=== PATIENT | male | born 1930 | race Caucasian/White ===

== ENCOUNTER 2018-04-29 16:03 | Inpatient (IN) | payer OTHER, MEDICAID ==
[~2018-04-29] VITALS: Ht 175.3 cm; Wt 80.7 kg
[~2018-04-29 16:03] MED LIST: ACET325T53 PO; ARTT OP; ASPI-859 PO; BENA20TA2 PO; DOCU-144 PO; FINA5TAB3 PO; GLU500 PO; HYDR25TA4 PO; MOM PO; OLAN10TA3 PO; REM15 PO; SIMV20TA2 PO; TAMS-11 PO
[2018-04-29 17:06] VITALS: BP_SYST 100
[2018-04-29] MEDS ORDERED: SPIR25TA PO (17:20)
[2018-04-29] MEDS ORDERED: FURO-150 PO (17:20)
[2018-04-29 19:06] LABS: BASOPHILS % (AUTO) 0.6 % (0.0-2.0); EOSINOPHILS # (AUTO) 0.4 K/uL (0.0-0.4); EOSINOPHILS % (AUTO) 6.5 % (0.0-4.0); HEMATOCRIT 32.3 % (36-54); HEMOGLOBIN 10.7 g/dL (14.0-18.0); LYMPHOCYTES # (AUTO) 1.2 K/uL (1.0-5.5); LYMPHOCYTES % (AUTO) 18.3 % (20.5-51.5); MEAN CORPUSCULAR HEMOGLOBIN 32 pg (27-31); MEAN CORPUSCULAR HGB CONC 33 % (32-36); MEAN CORPUSCULAR VOLUME 96 fL (79.0-98.0); MONOCYTES # (AUTO) 0.6 K/uL (0.0-1.0); MONOCYTES % (AUTO) 9.3 % (1.7-9.3); NEUTROPHILS # (AUTO) 4.2 K/uL (1.8-7.7); NEUTROPHILS % (AUTO) 65.3 % (40.0-70.0); PLATELET COUNT (AUTO) 336 K/uL (130-430); RED BLOOD CELL COUNT(AUTO) 3.37 MIL/uL (4.2-6.2); RED CELL DISTRIBUTION WIDTH 12.1 % (9.0-15.0); WHITE BLOOD COUNT (AUTO) 6.4 K/uL (4.8-10.8)
[2018-04-29 19:13] LABS: ANION GAP 6 (5-15); CALCIUM 8.8 mg/dL (8.4-11.0); CHLORIDE 107 mmol/L (98-107); CREATININE 0.85 mg/dL (0.55-1.30); GLUCOSE 127 mg/dL (70-99); SODIUM SERUM 141 mmol/L (136-145); UREA NITROGEN, BLOOD 28 mg/dL (8-21)
[2018-04-29] MEDS ORDERED: MILK OF MAGNESIA 30 ML UDC PO PRN (19:15)
[2018-04-29] MEDS ORDERED: ACETAMINOPHEN 325 MG TABLET PO PRN (19:15)
[2018-04-29 19:18] LABS: ALANINE AMINOTRANSFERASE 59 U/L (12-78); ALBUMIN 2.9 g/dL (3.4-4.8); ASPARTATE AMINOTRANSFERASE 45 U/L (10-37); TOTAL BILIRUBIN 0.3 mg/dL (0.0-1.0)
[2018-04-29 19:30] VITALS: BP_SYST 95
[2018-04-29] MEDS ORDERED: cefTRIAXone 1 GM IVPB PREMIX 50 ML IV ONE (20:26)
[2018-04-29] MEDS: KCL 20 mEq in D5/0.45NS 1000mL 1,000 ML IV SCH (21:19)
[2018-04-29] MEDS: PEG 400/HYPROMELLOSE/GLYCERIN 15 ML DROPS OP SCH (21:20)
[2018-04-29] MEDS: cefTRIAXone 1 GM in D5W 50 ML IV SCH (21:20)
[2018-04-29] MEDS: SIMVASTATIN 20 MG TABLET PO SCH (21:21)
[2018-04-29] MEDS: MIRTAZAPINE 15 MG TABLET PO SCH (21:21)
[2018-04-29 23:38] VITALS: BP_SYST 80
[2018-04-30] MEDS: INSULIN REGULAR, HUMAN 100 UNITS/ML, 10 ML VIAL (novoLIN R) SUBCUT PRN ×2 (00:21→17:47)
[2018-04-30 08:05] VITALS: BP_SYST 114
[2018-04-30] MEDS: KCL 20 mEq in D5/0.45NS 1000mL 1,000 ML IV SCH (09:25)
[2018-04-30] MEDS: ENOXAPARIN SODIUM 40 MG/0.4 ML SYRINGE SUBCUT SCH (09:26)
[2018-04-30] MEDS: PEG 400/HYPROMELLOSE/GLYCERIN 15 ML DROPS OP SCH ×2 (09:27→21:00)
[2018-04-30] MEDS: SPIRONOLACTONE 25 MG TABLET (ALDACTONE) PO SCH (09:27)
[2018-04-30] MEDS: DOCUSATE SODIUM 100 MG CAPSULE PO SCH (09:28)
[2018-04-30] MEDS: OLANZapine 10 MG TABLET PO SCH (09:28)
[2018-04-30] MEDS: BENAZEPRIL HCL 20 MG TABLET (LOTENSIN) PO SCH (09:28)
[2018-04-30] MEDS: metFORMIN HCL 500 MG TABLET PO SCH (09:28)
[2018-04-30] MEDS: FINASTERIDE 5 MG TABLET (PROSCAR) PO SCH (09:28)
[2018-04-30 12:49] VITALS: BP_SYST 95
[2018-04-30 16:49] VITALS: BP_SYST 103
[2018-04-30] MEDS: cefTRIAXone 1 GM in D5W 50 ML IV SCH (18:31)
[2018-04-30] MEDS: MIRTAZAPINE 15 MG TABLET PO SCH (21:03)
[2018-04-30] MEDS: SIMVASTATIN 20 MG TABLET PO SCH (21:03)
[2018-04-30] MEDS ORDERED: TEMAZEPAM 15 MG CAPSULE PO STA (22:00)
[2018-04-30] MEDS ORDERED: TEMAZEPAM 15 MG CAPSULE ONE (22:31)
[2018-05-01 00:30] VITALS: BP_SYST 105
[2018-05-01] MEDS: KCL 20 mEq in D5/0.45NS 1000mL 1,000 ML IV SCH ×2 (00:34→11:30)
[2018-05-01 07:22] LABS: ANION GAP 6 (5-15); CALCIUM 8.7 mg/dL (8.4-11.0); CHLORIDE 108 mmol/L (98-107); CREATININE 0.79 mg/dL (0.55-1.30); GLUCOSE 189 mg/dL (70-99); POTASSIUM 3.9 mmol/L (3.5-5.1); SODIUM SERUM 139 mmol/L (136-145); UREA NITROGEN, BLOOD 16 mg/dL (8-21)
[2018-05-01 07:38] LABS: BASOPHILS % (AUTO) 0.8 % (0.0-2.0); EOSINOPHILS # (AUTO) 0.5 K/uL (0.0-0.4); EOSINOPHILS % (AUTO) 8.9 % (0.0-4.0); HEMATOCRIT 34.6 % (36-54); HEMOGLOBIN 11.6 g/dL (14.0-18.0); LYMPHOCYTES # (AUTO) 1.2 K/uL (1.0-5.5); LYMPHOCYTES % (AUTO) 22.3 % (20.5-51.5); MEAN CORPUSCULAR HEMOGLOBIN 32 pg (27-31); MEAN CORPUSCULAR HGB CONC 33 % (32-36); MEAN CORPUSCULAR VOLUME 95 fL (79.0-98.0); MONOCYTES # (AUTO) 0.4 K/uL (0.0-1.0); MONOCYTES % (AUTO) 6.7 % (1.7-9.3); NEUTROPHILS # (AUTO) 3.3 K/uL (1.8-7.7); NEUTROPHILS % (AUTO) 61.3 % (40.0-70.0); PLATELET COUNT (AUTO) 377 K/uL (130-430); RED BLOOD CELL COUNT(AUTO) 3.66 MIL/uL (4.2-6.2); RED CELL DISTRIBUTION WIDTH 11.9 % (9.0-15.0); WHITE BLOOD COUNT (AUTO) 5.4 K/uL (4.8-10.8)
[2018-05-01 08:32] VITALS: BP_SYST 107
[2018-05-01] MEDS: ENOXAPARIN SODIUM 40 MG/0.4 ML SYRINGE SUBCUT SCH (09:00)
[2018-05-01] MEDS: metFORMIN HCL 500 MG TABLET PO SCH (09:00)
[2018-05-01] MEDS: SPIRONOLACTONE 25 MG TABLET (ALDACTONE) PO SCH (09:00)
[2018-05-01] MEDS: BENAZEPRIL HCL 20 MG TABLET (LOTENSIN) PO SCH (09:00)
[2018-05-01] MEDS: OLANZapine 10 MG TABLET PO SCH (09:00)
[2018-05-01] MEDS: DOCUSATE SODIUM 100 MG CAPSULE PO SCH (09:00)
[2018-05-01] MEDS: FINASTERIDE 5 MG TABLET (PROSCAR) PO SCH (09:00)
[2018-05-01] MEDS: PEG 400/HYPROMELLOSE/GLYCERIN 15 ML DROPS OP SCH (09:00)
[2018-05-01 12:02] VITALS: BP_SYST 115
[2018-05-01 16:02] VITALS: BP_SYST 124
[2018-05-01 16:44] VITALS: BP_SYST 124
[2018-05-01] MEDS ORDERED: HALOPERIDOL LACTATE 5 MG/ML VIAL IM ONE ×2 (19:30)
[2018-05-01 20:00] VITALS: BP_SYST 112
[2018-05-01] MEDS ORDERED: TEMAZEPAM 15 MG CAPSULE PO SCH (21:00)
== END 2018-05-01 20:43 | DRG 640 ==
LOC: SED 16:03 → SMU 17:02
PROVIDERS: ADMIT Family Medicine; ATTEND Family Medicine
DX: E86.0 Dehydration (principal); G93.41 Metabolic encephalopathy; E11.9 Type 2 diabetes mellitus without complications; I10 Essential (primary) hypertension; N40.0 Benign prostatic hyperplasia without lower urinary tract symptoms; M19.90 Unspecified osteoarthritis, unspecified site
CPT/HCPCS: 36415; 80048; 80053; 82962; 85025; 87081; 87086; 99285; J0696; J1630; J1650; J1815; J7060

== ENCOUNTER 2019-04-05 14:20 | Inpatient (IN) | payer OTHER, MEDICAID ==
[~2019-04-05] VITALS: Ht 157.5 cm; Wt 70.8 kg
[~2019-04-05 14:20] MED LIST changes: -BENA20TA2 PO; +BENA20TA9 PO; +FURO-150 PO; +SPIR25TA PO
[2019-04-05 14:22] VITALS: BP_SYST 111
[2019-04-05] MEDS ORDERED: NACL 0.9% 1,000 ML IV ONE (14:31)
[2019-04-05] MEDS ORDERED: NACL 0.9% 2,000 ML IV ONE ×2 (14:45→16:45)
[2019-04-05] MEDS ORDERED: ALBUTEROL SULFATE 0.083% 2.5 MG/3 ML VIAL.NEB INH ONE (14:45)
[2019-04-05] MEDS ORDERED: IPRATROPIUM BROM 0.5 MG/2.5 ML VIAL.NEB (ATROVENT) INH ONE (14:45)
[2019-04-05] MEDS ORDERED: methylPREDNISolone SOD SUCC/PF 62.5 MG/ML VIAL IVP ONE (14:45)
[2019-04-05 14:55] LABS: BASOPHILS % (AUTO) 0.4 % (0.0-2.0); EOSINOPHILS # (AUTO) 0.1 K/uL (0.0-0.4); EOSINOPHILS % (AUTO) 0.9 % (0.0-4.0); HEMATOCRIT 41.7 % (36-54); HEMOGLOBIN 13.6 g/dL (14.0-18.0); LYMPHOCYTES # (AUTO) 0.8 K/uL (1.0-5.5); LYMPHOCYTES % (AUTO) 7.2 % (20.5-51.5); MEAN CORPUSCULAR HEMOGLOBIN 32 pg (27-31); MEAN CORPUSCULAR HGB CONC 33 % (32-36); MEAN CORPUSCULAR VOLUME 99 fL (79.0-98.0); MONOCYTES # (AUTO) 0.5 K/uL (0.0-1.0); MONOCYTES % (AUTO) 4.5 % (1.7-9.3); NEUTROPHILS # (AUTO) 9.3 K/uL (1.8-7.7); PLATELET COUNT (AUTO) 294 K/uL (130-430); RED BLOOD CELL COUNT(AUTO) 4.23 MIL/uL (4.2-6.2); RED CELL DISTRIBUTION WIDTH 14.2 % (9.0-15.0); WHITE BLOOD COUNT (AUTO) 10.7 K/uL (4.8-10.8)
[2019-04-05 15:15] LABS: ANION GAP 7 (5-15); CALCIUM 8.9 mg/dL (8.4-11.0); CHLORIDE 111 mmol/L (98-107); CREATININE 1.98 mg/dL (0.55-1.30); POTASSIUM 4.9 mmol/L (3.5-5.1); PROTHROMBIN TIME 10.1 SECS (9.5-12.5); SODIUM SERUM 146 mmol/L (136-145); UREA NITROGEN, BLOOD 65 mg/dL (8-21)
[2019-04-05 15:31] LABS: ALANINE AMINOTRANSFERASE 23 U/L (12-78); ALBUMIN 3.6 g/dL (3.4-4.8); AMYLASE 28 U/L (0-100); ASPARTATE AMINOTRANSFERASE 8 U/L (10-37); LIPASE 156 U/L (73-393); TOTAL BILIRUBIN 0.3 mg/dL (0.0-1.0)
[2019-04-05 15:33] LABS: ALCOHOL, BLOOD < 3 mg/dL (<10); GLUCOSE 536 mg/dL (70-99)
[2019-04-05] MEDS ORDERED: INSULIN REGULAR, HUMAN 10 UNITS/0.1 ML INJ IVP ONE (16:45)
[2019-04-05 17:17] LABS: BILIRUBIN,URINE NEGATIVE (NEGATIVE); BLOOD, URINE NEGATIVE (NEGATIVE); CLARITY/URINE CLEAR (CLEAR); COLOR,URINE YELLOW (YELLOW); GLUCOSE,URINE 3+ (NEGATIVE); KETONES,URINE NEGATIVE (NEGATIVE); LEUKOCYTE ESTERASE ,URINE NEGATIVE (NEGATIVE); NITRITE, URINE NEGATIVE (NEGATIVE); PH,URINE 5.5 (5.0-8.0); PROTEIN URINE NEGATIVE (NEGATIVE); UROBILINOGEN,URINE 0.2 (0.2-1.0)
[2019-04-05 17:51] LABS: BARBITURATE, URINE NEGATIVE (NEG <=200); BENZODIAZEPINE, URINE NEGATIVE (NEG <=150); CANNABINOID, URINE NEGATIVE (NEG <=50); COCAINE, URINE NEGATIVE (NEG <=150); METHAMPHETAMINES SCREEN,URINE NEGATIVE (NEG <=500); OPIATE, URINE NEGATIVE (NEG <=100); PHENCYCLIDINE SCREEN,URINE NEGATIVE (NEG <=25); UR TRICYCLIC ANTIDEPRESSANTS NEGATIVE (NEG <=300); URINE AMPHETAMINE NEGATIVE (NEG <=500); URINE METHADONE NEGATIVE (NEG <=200); URINE OXYCODONE SCREEN NEGATIVE (NEG <=100); URINE PROPOXYPHENE SCREEN NEGATIVE (NEG <=300)
[2019-04-05] MEDS ORDERED: NOREPINEPHRINE BITARTRATE 4 MG in NS 246 ML IV ONE (18:30)
[2019-04-05 18:39] LABS: BACTERIA,URINE FEW /HPF (None Seen); MUCUS,URINE 2+ /LPF (None Seen); RBC,URINE 0-3 /HPF (0-3)
[2019-04-05] MEDS ORDERED: NOREPINEPHRINE 4 MG/4 ML VIAL IV ONE (19:54)
[2019-04-05 21:19] VITALS: BP_SYST 107
[2019-04-05] MEDS: NACL 0.9% 1,000 ML IV SCH (22:54)
[2019-04-05] MEDS: IPRATROPIUM/ALBUTEROL SULFATE 3 ML AMPUL.NEB (DUONEB) INH SCH (23:16)
[2019-04-06] VITALS (21 sets, daily range): BP systolic 101–142
[2019-04-06] MEDS: IPRATROPIUM/ALBUTEROL SULFATE 3 ML AMPUL.NEB (DUONEB) INH SCH ×6 (02:56→23:08)
[2019-04-06] MEDS ORDERED: NOREPINEPHRINE 4 MG/4 ML VIAL IV ONE (04:24)
[2019-04-06] MEDS ORDERED: NOREPINEPHRINE BITARTRATE 4 MG in NS 246 ML IV PRN (05:00)
[2019-04-06 05:59] LABS: BASOPHILS % (AUTO) 0.4 % (0.0-2.0); EOSINOPHILS # (AUTO) 0.2 K/uL (0.0-0.4); EOSINOPHILS % (AUTO) 2.1 % (0.0-4.0); HEMATOCRIT 35.4 % (36-54); HEMOGLOBIN 11.7 g/dL (14.0-18.0); LYMPHOCYTES # (AUTO) 1.4 K/uL (1.0-5.5); LYMPHOCYTES % (AUTO) 13.6 % (20.5-51.5); MEAN CORPUSCULAR HEMOGLOBIN 32 pg (27-31); MEAN CORPUSCULAR HGB CONC 33 % (32-36); MEAN CORPUSCULAR VOLUME 98 fL (79.0-98.0); MONOCYTES # (AUTO) 0.6 K/uL (0.0-1.0); MONOCYTES % (AUTO) 5.8 % (1.7-9.3); NEUTROPHILS # (AUTO) 7.9 K/uL (1.8-7.7); NEUTROPHILS % (AUTO) 78.1 % (40.0-70.0); PLATELET COUNT (AUTO) 280 K/uL (130-430); RED CELL DISTRIBUTION WIDTH 14.1 % (9.0-15.0); WHITE BLOOD COUNT (AUTO) 10.1 K/uL (4.8-10.8)
[2019-04-06 06:11] LABS: ALANINE AMINOTRANSFERASE 20 U/L (12-78); ALBUMIN 2.7 g/dL (3.4-4.8); ANION GAP 10 (5-15); ASPARTATE AMINOTRANSFERASE 9 U/L (10-37); CALCIUM 8.2 mg/dL (8.4-11.0); CHLORIDE 119 mmol/L (98-107); CREATININE 1.18 mg/dL (0.55-1.30); GLUCOSE 276 mg/dL (70-99); POTASSIUM 3.9 mmol/L (3.5-5.1); SODIUM SERUM 152 mmol/L (136-145); TOTAL BILIRUBIN 0.5 mg/dL (0.0-1.0); UREA NITROGEN, BLOOD 47 mg/dL (8-21)
[2019-04-06] MEDS ORDERED: FLU VACC TS2019(65UP)/MF59C/PF 45 MCG/0.5 ML SYRINGE I.M. PRN (06:15)
[2019-04-06] MEDS ORDERED: INSULIN REGULAR, HUMAN 100 UNITS/ML, 10 ML VIAL SUBCUT SCH (07:00)
[2019-04-06] MEDS ORDERED: D5W 1,000 ML IV PRN (08:00)
[2019-04-06] MEDS ORDERED: GLUCOSE 15 GM GEL (in 37.5 GM TUBE) PO PRN (08:00)
[2019-04-06] MEDS ORDERED: DEXTROSE 50%-WATER 50 ML DISP.SYRIN IVP PRN (08:00)
[2019-04-06] MEDS: NACL 0.9% 1,000 ML IV SCH ×2 (08:58→16:12)
[2019-04-06] MEDS ORDERED: LEVOFLOXACIN 500 MG/D5W 100 ML IV SCH (09:00)
[2019-04-06] MEDS: OLANZapine 10 MG TABLET PO SCH (09:00)
[2019-04-06] MEDS: INSULIN REGULAR, HUMAN 100 UNITS/ML, 10 ML VIAL (humuLIN R) SUBCUT PRN ×3 (09:00→22:56)
[2019-04-06] MEDS ORDERED: metroNIDAZOLE 500 mg/NS 100 ML IV ONE (11:30)
[2019-04-06] MEDS: cefTRIAXone 1 GM in D5W 50 ML IV SCH (12:08)
[2019-04-06] MEDS ORDERED: ACETAMINOPHEN 325 MG TABLET PO PRN (15:15)
[2019-04-06] MEDS: metroNIDAZOLE 500 mg/NS 100 ML IV SCH (22:14)
[2019-04-07] VITALS (21 sets, daily range): BP systolic 96–135
[2019-04-07] MEDS: IPRATROPIUM/ALBUTEROL SULFATE 3 ML AMPUL.NEB (DUONEB) INH SCH ×6 (03:59→23:32)
[2019-04-07] MEDS: NACL 0.9% 1,000 ML IV SCH ×3 (04:30→20:44)
[2019-04-07 06:53] LABS: BASOPHILS # (AUTO) 0.1 K/uL (0.0-0.2); BASOPHILS % (AUTO) 0.6 % (0.0-2.0); EOSINOPHILS # (AUTO) 0.1 K/uL (0.0-0.4); EOSINOPHILS % (AUTO) 0.3 % (0.0-4.0); HEMATOCRIT 36.4 % (36-54); HEMOGLOBIN 11.7 g/dL (14.0-18.0); LYMPHOCYTES # (AUTO) 1.1 K/uL (1.0-5.5); LYMPHOCYTES % (AUTO) 7.7 % (20.5-51.5); MEAN CORPUSCULAR HEMOGLOBIN 32 pg (27-31); MEAN CORPUSCULAR HGB CONC 32 % (32-36); MEAN CORPUSCULAR VOLUME 99 fL (79.0-98.0); MONOCYTES # (AUTO) 0.5 K/uL (0.0-1.0); MONOCYTES % (AUTO) 3.3 % (1.7-9.3); NEUTROPHILS % (AUTO) 88.1 % (40.0-70.0); PLATELET COUNT (AUTO) 252 K/uL (130-430); RED BLOOD CELL COUNT(AUTO) 3.68 MIL/uL (4.2-6.2); RED CELL DISTRIBUTION WIDTH 14.5 % (9.0-15.0)
[2019-04-07 06:55] LABS: ANION GAP 6 (5-15); CALCIUM 8.4 mg/dL (8.4-11.0); CREATININE 1.03 mg/dL (0.55-1.30); GLUCOSE 205 mg/dL (70-99); POTASSIUM 3.6 mmol/L (3.5-5.1); SODIUM SERUM 150 mmol/L (136-145); UREA NITROGEN, BLOOD 25 mg/dL (8-21)
[2019-04-07 07:04] LABS: CHLORIDE 120 mmol/L (98-107)
[2019-04-07 07:39] LABS: WHITE BLOOD COUNT (AUTO) 14.8 K/uL (4.8-10.8)
[2019-04-07] MEDS: metroNIDAZOLE 500 mg/NS 100 ML IV SCH ×2 (07:50→22:29)
[2019-04-07] MEDS: OLANZapine 10 MG TABLET PO SCH (07:50)
[2019-04-07] MEDS ORDERED: POTASSIUM CHLORIDE 20 MEQ/PKT PACKET PO ONE (08:15)
[2019-04-07] MEDS ORDERED: FUROSEMIDE 20 MG/2 ML VIAL IVP ONE (08:15)
[2019-04-07] MEDS: INSULIN REGULAR, HUMAN 100 UNITS/ML, 10 ML VIAL (humuLIN R) SUBCUT PRN ×3 (12:01→22:39)
[2019-04-07] MEDS: cefTRIAXone 1 GM in D5W 50 ML IV SCH (14:20)
[2019-04-07] MEDS: KCL 20 mEq in 0.45% NS 1000 mL 1,000 ML IV SCH (22:30)
[2019-04-07] MEDS ORDERED: KCL 20 mEq in 0.45% NS 1000 mL 1,000 ML IV ONE (22:33)
[2019-04-08] VITALS (8 sets, daily range): BP systolic 103–126
[2019-04-08] MEDS: IPRATROPIUM/ALBUTEROL SULFATE 3 ML AMPUL.NEB (DUONEB) INH SCH ×6 (04:42→23:41)
[2019-04-08] MEDS: INSULIN REGULAR, HUMAN 100 UNITS/ML, 10 ML VIAL (humuLIN R) SUBCUT PRN (06:31)
[2019-04-08] MEDS: KCL 20 mEq in 0.45% NS 1000 mL 1,000 ML IV SCH ×2 (08:59→19:26)
[2019-04-08] MEDS: OLANZapine 10 MG TABLET PO SCH (09:00)
[2019-04-08] MEDS: metroNIDAZOLE 500 mg/NS 100 ML IV SCH ×2 (09:00→21:06)
[2019-04-08] MEDS: cefTRIAXone 1 GM in D5W 50 ML IV SCH (11:16)
[2019-04-09 01:45] VITALS: BP_SYST 115
[2019-04-09] MEDS: IPRATROPIUM/ALBUTEROL SULFATE 3 ML AMPUL.NEB (DUONEB) INH SCH ×5 (03:07→23:13)
[2019-04-09] MEDS: KCL 20 mEq in 0.45% NS 1000 mL 1,000 ML IV SCH ×2 (06:17→17:31)
[2019-04-09 07:45] LABS: BASOPHILS % (AUTO) 0.1 % (0.0-2.0); EOSINOPHILS # (AUTO) 0.4 K/uL (0.0-0.4); HEMATOCRIT 31.3 % (36-54); HEMOGLOBIN 10.5 g/dL (14.0-18.0); LYMPHOCYTES # (AUTO) 0.9 K/uL (1.0-5.5); LYMPHOCYTES % (AUTO) 9.8 % (20.5-51.5); MEAN CORPUSCULAR HEMOGLOBIN 33 pg (27-31); MEAN CORPUSCULAR HGB CONC 34 % (32-36); MEAN CORPUSCULAR VOLUME 98 fL (79.0-98.0); MONOCYTES # (AUTO) 0.3 K/uL (0.0-1.0); MONOCYTES % (AUTO) 2.9 % (1.7-9.3); NEUTROPHILS # (AUTO) 7.7 K/uL (1.8-7.7); NEUTROPHILS % (AUTO) 83.2 % (40.0-70.0); PLATELET COUNT (AUTO) 217 K/uL (130-430); RED CELL DISTRIBUTION WIDTH 14.1 % (9.0-15.0); WHITE BLOOD COUNT (AUTO) 9.3 K/uL (4.8-10.8)
[2019-04-09 08:12] VITALS: BP_SYST 122
[2019-04-09 08:15] LABS: ANION GAP 11 (5-15); CALCIUM 7.9 mg/dL (8.4-11.0); CHLORIDE 116 mmol/L (98-107); CREATININE 0.66 mg/dL (0.55-1.30); GLUCOSE 134 mg/dL (70-99); POTASSIUM 3.4 mmol/L (3.5-5.1); SODIUM SERUM 147 mmol/L (136-145); UREA NITROGEN, BLOOD 16 mg/dL (8-21)
[2019-04-09] MEDS: OLANZapine 10 MG TABLET PO SCH (09:00)
[2019-04-09] MEDS: metroNIDAZOLE 500 mg/NS 100 ML IV SCH ×2 (09:05→20:14)
[2019-04-09] MEDS: cefTRIAXone 1 GM in D5W 50 ML IV SCH (11:00)
[2019-04-09 12:15] VITALS: BP_SYST 117
[2019-04-09] MEDS ORDERED: BARIUM SULFATE 135 ML SUSP.RECON (E-Z-HD) PO ONE (13:19)
[2019-04-09] MEDS ORDERED: POTASSIUM CHLORIDE 20 MEQ/PKT PACKET PO ONE (15:00)
[2019-04-09 16:20] VITALS: BP_SYST 124
[2019-04-09] MEDS: INSULIN REGULAR, HUMAN 100 UNITS/ML, 10 ML VIAL (humuLIN R) SUBCUT PRN (17:37)
[2019-04-09 20:00] VITALS: BP_SYST 107
[2019-04-10 01:08] VITALS: BP_SYST 119
[2019-04-10] MEDS: KCL 20 mEq in 0.45% NS 1000 mL 1,000 ML IV SCH (01:54)
[2019-04-10] MEDS: IPRATROPIUM/ALBUTEROL SULFATE 3 ML AMPUL.NEB (DUONEB) INH SCH ×5 (02:44→20:08)
[2019-04-10 08:57] VITALS: BP_SYST 119
[2019-04-10] MEDS: OLANZapine 10 MG TABLET PO SCH (10:28)
[2019-04-10] MEDS ORDERED: cefTRIAXone 1 GM in D5W 50 ML IV SCH (10:45)
[2019-04-10 11:24] VITALS: BP_SYST 119
[2019-04-10] MEDS: INSULIN REGULAR, HUMAN 100 UNITS/ML, 10 ML VIAL (humuLIN R) SUBCUT PRN ×2 (12:19→17:57)
[2019-04-10] MEDS ORDERED: metroNIDAZOLE 500 mg/NS 100 ML IV SCH (14:00)
[2019-04-10 15:27] VITALS: BP_SYST 114
[2019-04-10 19:55] VITALS: BP_SYST 117
[2019-04-10 20:14] VITALS: BP_SYST 117
== END 2019-04-10 10:31 | DRG 871 ==
LOC: SED 14:20 → SIC 18:21 → STU 04-07 23:38
PROVIDERS: ADMIT Internal Medicine; ATTEND Internal Medicine
PROC: 02HV33Z Insertion of Infusion Device into Superior Vena Cava, Percutaneous Approach (ICD-10-PCS; principal; 2019-04-05)
PROC: B548ZZA Ultrasonography of Superior Vena Cava, Guidance (ICD-10-PCS; 2019-04-05)
DX: A41.9 Sepsis, unspecified organism (principal); R65.21 Severe sepsis with septic shock; J69.0 Pneumonitis due to inhalation of food and vomit; G93.41 Metabolic encephalopathy; N17.9 Acute kidney failure, unspecified; E87.0 Hyperosmolality and hypernatremia; J98.11 Atelectasis; D64.9 Anemia, unspecified; E11.65 Type 2 diabetes mellitus with hyperglycemia; E78.5 Hyperlipidemia, unspecified; F03.90 Unspecified dementia, unspecified severity, without behavioral disturbance, psychotic disturbance, mood disturbance, and anxiety; F20.9 Schizophrenia, unspecified; I10 Essential (primary) hypertension; N40.0 Benign prostatic hyperplasia without lower urinary tract symptoms; R13.10 Dysphagia, unspecified; J44.9 Chronic obstructive pulmonary disease, unspecified; Z79.899 Other long term (current) drug therapy
CPT/HCPCS: 36415; 70450-TC; 71045; 74230; 80048; 80053; 80307; 81000-TC; 82150-TC; 82550-TC; 82962; 83605; 83690-TC; 83735-TC; 83880; 84484; 85025; 85610-TC; 85730-TC; 86710; 87040-TC; 87081; 92610-GN; 92611-GN; 93005; 94640; 94760; 96361; 96365; 96375; 99285; C1751; C1769; G0378; G0482; J0696; J1815; J1940; J1956; J3480; J3490; J7030; J7050; J7060; J7620